=== PATIENT | male | born 1990 | race Caucasian/White ===

== ENCOUNTER 2024-12-17 15:37 | Emergency (ER) | payer MEDICAID ==
[~2024-12-17] VITALS: Ht 188 cm; Wt 100.0 kg
[~2024-12-17 15:37] MED LIST: NO HOME MEDS
[2024-12-17 15:41] VITALS: BP 162/75; PULSE 95; TEMP 98.4; O2SAT 94
[2024-12-17 17:04] LABS: BASOPHILS % (AUTO) 0.4 % (0-1); EOSINOPHILS # (AUTO) 0.1 X10'3 (0-0.9); EOSINOPHILS % (AUTO) 0.8 % (0-6); HEMATOCRIT 44.4 % (42.0-52.0); HEMOGLOBIN 14.7 g/dl (14.0-17.9); LYMPHOCYTES # (AUTO) 1.5 X10'3 (1.1-4.8); LYMPHOCYTES % (AUTO) 14.3 % (21-51); MEAN CORPUSCULAR HGB CONC 33.2 g/dL (33.0-36.5); MEAN CORPUSCULAR VOLUME 84.4 FL (78-98); MEAN PLATELET VOLUME 9.4 FL (7.4-10.4); MONOCYTES # (AUTO) 0.8 X10'3 (0-0.9); MONOCYTES % (AUTO) 7.7 % (2-12); NEUTROPHILS % (AUTO) 76.8 % (42-75); PLATELET COUNT 258 X10'3 (140-440); RED BLOOD COUNT 5.25 X10'6 (4.70-6.10); RED CELL DISTRIBUTION WIDTH 13.3 % (11.5-14.5); WHITE BLOOD COUNT 10.4 X10'3 (4.5-11.0)
[2024-12-17] MEDS ORDERED: OXYC-145 PO (17:17)
[2024-12-17] MEDS: acetaminophen 325mg tablet PO ONE (17:41)
[2024-12-17 17:42] VITALS: RESP 18
[2024-12-17] MEDS: morphine 4 MG/ML inj SYRINge IM STA (17:42)
[2024-12-17 18:07] LABS: ALANINE AMINOTRANSFERASE 80 U/L (12-78); ALBUMIN 4.1 G/DL (3.4-5.0); ALBUMIN/GLOBULIN RATIO 1.3 (1.1-1.5); ALKALINE PHOSPHATASE 77 IU/L (46-116); ANION GAP 9 (8-16); ASPARTATE AMINO TRANSFERASE 35 U/L (10-37); BILIRUBIN,TOTAL 0.3 MG/DL (0.1-1.0); BLOOD UREA NITROGEN 13 MG/DL (7-18); BUN/CREATININE RATIO 12.6 (10.0-20.0); CALCIUM 8.8 MG/DL (8.5-10.1); CHLORIDE 105 MMOL/L (99-107); CREATININE 1.03 MG/DL (0.60-1.10); GLUCOSE 97 MG/DL (70-104); LIPASE 34 U/L (16-77); POTASSIUM 3.8 MMOL/L (3.5-5.1); SODIUM 142 MMOL/L (135-145); TOTAL CARBON DIOXIDE 27.7 MMOL/L (24-32); TOTAL PROTEIN 7.2 G/DL (6.4-8.2); eCRCL 115 ML/MIN; eGFR 82 ML/MIN
== END 2024-12-17 17:50 | disposition home or self-care (01) ==
LOC: ER 15:38
DX: N20.0 Calculus of kidney (principal); F12.90 Cannabis use, unspecified, uncomplicated; Z88.1 Allergy status to other antibiotic agents; Z88.2 Allergy status to sulfonamides; Z90.49 Acquired absence of other specified parts of digestive tract
CPT/HCPCS: 36415; 76770; 80053; 83690; 85025; 96372; 99285; J2270

== ENCOUNTER 2025-01-16 09:11 | Day surgery (SDC) | payer MEDICAID ==
--- NOTE | 2025-01-09 14:09 | ELECTROCARDIOGRAPH REPORT ---
[facility] Test Date: 2025-01-09 Test Time: 14:06:20 Pat Name: KARON MANZANARES Department: [facility]-PRE-OP Patient ID: [facility]-[id number] Room: Gender: M Gate Watch: : 1990 Requested By: JANI ALLAN Order Number: [id number] Reading MD: Dr. SHERI Edwards Measurements Intervals Lindsay Rate: 69 P: 51 ME: 143 QRS: 48 QRSD: 79 T: 54 QT: 370 QTc: 397 Interpretive Statements Sinus rhythm Baseline wander in lead(s) I,II,aVR,aVL Electronically Signed On 01-09-2025 17:37:[address] SHERI Edwards Please click the below link to view image of tracing.
[2025-01-09 14:31] LABS: BASOPHILS # (AUTO) 0.1 X10'3 (0-0.2); BASOPHILS % (AUTO) 0.9 % (0-1); EOSINOPHILS # (AUTO) 0.1 X10'3 (0-0.9); EOSINOPHILS % (AUTO) 1.7 % (0-6); LYMPHOCYTES # (AUTO) 1.8 X10'3 (1.1-4.8); LYMPHOCYTES % (AUTO) 24.7 % (21-51); MEAN CORPUSCULAR HEMOGLOBIN 28.6 PG (27.0-31.0); MEAN PLATELET VOLUME 9.1 FL (7.4-10.4); MONOCYTES # (AUTO) 0.6 X10'3 (0-0.9); NEUTROPHILS # (AUTO) 4.5 X10'3 (1.8-7.7); NEUTROPHILS % (AUTO) 63.7 % (42-75); PRE OP HEMATOCRIT 45.4 % (42.0-52.0); PRE OP HEMOGLOBIN 15.4 g/dL (14.0-17.9); PRE OP PLATELET COUNT 242 X10'3 (140-440); PRE OP WHITE BLOOD COUNT 7.1 10'3 (4.8-10.8); RED CELL DISTRIBUTION WIDTH 13.4 % (11.5-14.5)
[2025-01-09 15:09] LABS: ALBUMIN 4.3 G/DL (3.4-5.0); ALBUMIN/GLOBULIN RATIO 1.3 (1.1-1.5); ALKALINE PHOSPHATASE 76 IU/L (46-116); BLOOD UREA NITROGEN 9 MG/DL (7-18); BUN/CREATININE RATIO 10.8 (10.0-20.0); CALCIUM 9.3 MG/DL (8.5-10.1); CHLORIDE 104 MMOL/L (99-107); CREATININE 0.83 MG/DL (0.60-1.10); PRE OP ALT 76 U/L (30-65); PRE OP ANION GAP 9 (8-16); PRE OP AST 32 U/L (10-37); PRE OP BILIRUB, TOTAL 0.4 MG/DL (0.0-1.0); PRE OP GLUCOSE 92 MG/DL (70-104); PRE OP POTASSIUM 3.9 MMOL/L (3.4-5.1); PRE OP SODIUM 141 MMOL/L (135-145); TOTAL PROTEIN 7.6 G/DL (6.4-8.2); eGFR > 90 ML/MIN
[~2025-01-16] VITALS: Ht 188 cm; Wt 149.0 kg
[2025-01-16] VITALS (14 sets, daily range): BP systolic 136–159; BP diastolic 84–100; PULSE 58–84; RESP 9–16; TEMP 97.9; O2SAT 96–100
[2025-01-16] MEDS: ceFAZolin 2gm in dextrose, iso 50 ML IV ONE (05:30)
[~2025-01-16 09:11] MED LIST changes: +HYDR-3965 PO; -NO HOME MEDS; +TAMS-55 PO
[2025-01-16] MEDS ORDERED: iohexol 300 MG/1 ML 50ml polymer ONE (09:41)
[2025-01-16] MEDS: famotidine 20mg tablet PO ONE (09:50)
[2025-01-16] MEDS: ringers solution, lacted 1,000 ML IV SCH (09:51)
[2025-01-16] MEDS ORDERED: sevoflurane 250ml liquid IH ONE (10:14)
[2025-01-16] MEDS ORDERED: fentaNYL/PF 50MCG/1 ML 2ML syringe ONE (10:25)
[2025-01-16] MEDS: iohexol 300 MG/1 ML 50ml polymer IV ONE (11:02)
[2025-01-16] MEDS ORDERED: LIDOcaine 2% (20mg/ml) 5ml vial ONE (11:46)
[2025-01-16] MEDS ORDERED: propofol inj 20 ML IV ONE (11:46)
[2025-01-16] MEDS ORDERED: midazolam 1 mg/ML 2ml injection ONE (11:46)
[2025-01-16] MEDS ORDERED: dexamethasone sod phosphate 4mg/ml inj. ONE (11:47)
[2025-01-16] MEDS ORDERED: ondansetron/PF 4mg/2ml inj ONE (11:47)
--- NOTE | 2025-01-16 12:04 | OPERATIVE REPORT ---
Operative Report Providers to ~ Date of Procedure: January 16, 2025 Pre-Operative Diagnosis: Left renal and ureteral stones Post-Operative Diagnosis SAME as PRE-Op, distal ureteral stricture. Procedure Performed One. Left retrograde pyelography. 2. Left ureteroscopic laser lithotripsy with basket fragment retrieval. Three. Left ureteral stent placement. 4. Fluoroscopy with interpretation less than 1 hour. 5. Level 22 modifier for procedure time greater than 50% of expected due to limited availability of adequate instruments during the case. Surgeon: Nehemias Allan MD Communication Technician None. Anesthesiologist: Ye Matthews Type of Anesthesia: General Findings: Fluoroscopic findings: Retrograde pyelography demonstrated a normal distal ureter. At the location of the inferior border of the SI joint the ureter abruptly narrowed and had a radiolucent filling defect. Final images demonstrated coiling of the ureteral stent within the renal pelvis and bladder. Complications None. Prosthetics\Implants used: 7 Grenadian by 24 cm ureteral stent. Estimated Blood Loss: None. Specimen Removed: Ureteral stone fragments. Description of Procedure: The patient was under the effects of general anesthesia and in dorsal lithotomy with his genitals prepped and draped in sterile fashion. The urethra was entered with a 21 Grenadian scope and we appreciated normal anatomy with a normal urethra, prostate fossa, and bladder with orthotopic ureteral orifices. The left orifice was cannulated for retrograde pyelography which revealed the above. We tried advancing a wire into the upper tract but the wire would not advance proximal to the stone. We then used the open-ended catheter to apply gentle pressure at the stone but the stone would not move. Instead we entered the urethra with a semi-rigid ureteroscope. This ureteroscope yielded terrible image quality and the stone could barely be observed. Instead we waited for a 2nd semi-rigid ureteroscope to be brought into the room which after at least 10 minutes of waiting was identified. Using this 2nd ureteroscope we were then able to visualize the stone which was fragmented using laser energy. The ureter at this location appeared moderately scarred and narrowed as tissue appeared to have been growing into the stone itself. Once the stone was sufficiently fragmented we could observe the remainder of the lumen proximal to the stone and we advanced a wire into the upper tract through this lumen. Using a basket we then removed stone fragments which were deposited into the bladder. We then attempted to advance a digital ureteroscope into the upper tract. The 1st ureteral scope which was brought to the room was a fiberoptic Storz ureteroscope which had greater than 20 pixels. The image quality through the scope was also terrible and one could not definitively identify anything through the scope. Instead we waited for a digital ureteroscope which once finished processing was brought into the room. We attempted to advance the scope over our wire but the scope would not move proximal to the previously identified ureteral stricture. Over the previously placed wire we then tried to calibrate the ureteral lumen using ureteral dilators and the ureter would not accept even a 10 Grenadian dilator. We elected simply to place a ureteral stent and not perform any upper tract nephroscopy. The previously placed wire was back loaded onto our cystoscope and used to advance and deploy a seven Grenadian by 24 cm stent and we observed good coiling within the renal pelvis and bladder after deployment. At this point all instruments were removed from the patient's body along with stone fragments with the bladder which were passed off for compositional analysis. The patient was awoken from his general anesthesia in stable condition. NEHEMIAS ALLAN MD January 16, 2025 12:04
[2025-01-16] MEDS ORDERED: ondansetron/PF 4mg/2ml inj IV PRN (12:05)
[2025-01-16] MEDS ORDERED: labetalol 20mg/4ml (5mg/ml) syringe IV PRN (12:05)
[2025-01-16] MEDS ORDERED: ringers solution, lacted 1,000 ML IV SCH (12:05)
[2025-01-16] MEDS ORDERED: hydrALAZINE 20mg/ml inj. IV PRN (12:05)
[2025-01-16] MEDS ORDERED: morphine 2 MG/ML inj. syringe IV PRN (12:05)
[2025-01-16] MEDS ORDERED: meperidine/PF 25mg/ml syringe IV PRN (12:05)
[2025-01-16] MEDS ORDERED: HYDROmorphone/PF 0.2 MG/ML SYRINGE IV PRN (12:05)
[2025-01-16] MEDS ORDERED: proCHLORperazine 10 MG/2 ml inj IV PRN (12:05)
[2025-01-16] MEDS: acetaminophen 1,000mg/100ml IV 100 ML IV PRN (12:37)
[2025-01-16] MEDS: morphine 4 MG/ML inj SYRINge IV PRN (12:44)
[2025-01-16] MEDS: HYDROmorphone/PF 0.2 MG/ML SYRINGE IV PRN (13:30)
[2025-01-16] MEDS: HYDROcodone/acetaminophen 5mg/325mg tablet PO ONE (13:41)
== END 2025-01-16 14:00 | disposition home or self-care (01) ==
LOC: PRE-OP 09:11 → PAS 14:00
PROVIDERS: ATTEND Urology
DX: N13.2 Hydronephrosis with renal and ureteral calculous obstruction (principal); N13.5 Crossing vessel and stricture of ureter without hydronephrosis; Z79.899 Other long term (current) drug therapy; Z98.890 Other specified postprocedural states; Z87.891 Personal history of nicotine dependence; Z88.8 Allergy status to other drugs, medicaments and biological substances; Z87.442 Personal history of urinary calculi
CPT/HCPCS: 36415; 52356; 74420; 80053; 82948; 85025; 93005; C1758; C2617; J0131; J0690; J1100; J1171; J2003; J2250; J2270; J2405; J2704; J3010; J7030; J7120; Q9967; Z7506; Z7508; Z7512; 76000; A4618; A7000